=== PATIENT | female | born 1975 | race African-American/Black ===

== ENCOUNTER 2016-07-09 07:19 | Emergency (ER) | payer MEDICAID ==
[~2016-07-09] VITALS: Ht 162.6 cm; Wt 55.0 kg
[~2016-07-09 07:19] MED LIST: BUPR75TA3; BUPROPION; QUET50TA11; SERAQUEL; SEROQUEL
[2016-07-09] MEDS ORDERED: ACETAMINOPHEN 500MG TABLET PO ONE (10:30)
[2016-07-09 14:56] LABS: CLARITY URINE CLOUDY (CLEAR); COLOR URINE YELLOW (YELLOW); GLUCOSE URINE NEGATIVE (NEGATIVE); KETONES URINE NEGATIVE (NEGATIVE); LEUKOCYTE ESTERASE URINE NEGATIVE (NEGATIVE); NITRITE URINE NEGATIVE (NEGATIVE); OCCULT BLOOD URINE NEGATIVE (NEGATIVE); PROTEIN URINE NEGATIVE (NEGATIVE); SPECIFIC GRAVITY URINE 1.022 (1.005-1.030)
[2016-07-09 15:19] LABS: *AMPHETAMINES SCREEN URINE NEGATIVE (NEGATIVE); *BARBITURATES SCREEN URINE NEGATIVE (NEGATIVE); *BENZODIAZEPINES SCREEN URINE NEGATIVE (NEGATIVE); *COCAINE SCREEN URINE NEGATIVE (NEGATIVE); CANNABINOID URINE SCREEN NEGATIVE (NEGATIVE); ECSTASY MDMA SCREEN URINE NEGATIVE (NEGATIVE); METHADONE URINE SCREEN NEGATIVE (NEGATIVE); OPIATES URINE SCREEN NEGATIVE (NEGATIVE); PHENCYCLIDINE URINE SCREEN PRESUMTIVE POSITIVE (NEGATIVE)
[2016-07-09 15:20] LABS: MUCUS URINE 2+ /lpf (< = 2+); SQUAMOUS EPITHELIAL CELL URINE 3+ /lpf (RARE/1+)
[2016-07-09 15:22] LABS: BACTERIA URINE 3+; RBC URINE 0-2 /hpf (0-2); WBC URINE 0-2 /hpf (0-2)
[2016-07-09 19:16] VITALS: BP 131/82
== END 2016-07-09 20:00 | disposition home or self-care (01) ==
LOC: ER 09:29
DX: R51 Headache (principal); R41.82 Altered mental status, unspecified; Z91.018 Allergy to other foods; R03.0 Elevated blood-pressure reading, without diagnosis of hypertension
CPT/HCPCS: 70450; 80305; 81001; 81025; 99285; Z7610

== ENCOUNTER 2016-07-09 21:09 | Emergency (ER) | payer MEDICAID ==
[~2016-07-09] VITALS: Ht 162.6 cm; Wt 54.0 kg
[2016-07-10 03:29] LABS: BASOPHILS % 0.3 % (0.0-2.0); DIFFERENTIAL COMMENT 0; EOSINOPHILS % 0.8 % (0.0-5.0); HEMATOCRIT. 33.7 % (36.0-48.0); HEMOGLOBIN. 10.5 g/dL (12.0-16.0); LYMPHOCYTES % 35.5 % (20.0-50.0); MEAN CORPUSCULAR HEMOGLOBIN 23.6 pg (28.0-32.0); MEAN CORPUSCULAR HGB CONC 31.1 g/dL (31.0-37.0); MEAN CORPUSCULAR VOLUME 75.7 fL (81.0-99.0); MEAN PLATELET VOLUME 7.7 fl (7.4-10.4); MONOCYTES % 6.9 % (2.0-8.0); NEUTROPHILS % 56.5 % (40.0-76.0); PLATELET 244 x1000/uL (130-400); RED BLOOD CELL COUNT 4.45 mill/uL (4.2-5.4); RED CELL DISTRIBUTION WIDTH 17.8 % (11.6-14.6); WHITE BLOOD COUNT 4.4 x1000/uL (4.5-11.0)
[2016-07-10 03:44] LABS: ALANINE AMINOTRANSFERASE 12 IU/L (13-61); ALBUMIN 3.4 g/dL (3.4-5.0); ANION GAP 11; CALCIUM 8.6 mg/dL (8.5-10.1); CARBON DIOXIDE 26 mEq/L (21-32); CHLORIDE 108 mEq/L (98-107); ETHANOL BLOOD < 10 mg/dL; INDEX HEMOLYSI 2 (1-3); INDEX ICTERIC 1 (1-4); INDEX LIPEMIC 1 (1-3); UREA NITROGEN BLOOD 9 mg/dL (7-21); eGFR > 60 mL/min (>60)
[2016-07-10] MEDS ORDERED: SODIUM CHLORIDE 0.9% 1,000 ML IV ONE (07:06)
[2016-07-10] MEDS ORDERED: KCL 20MEQ/100ML PREMIX 100 ML IV NR (07:15)
[2016-07-10] MEDS ORDERED: POTASSIUM CHLORIDE 40MEQ/30ML UDC PO ONE (07:30)
[2016-07-10] MEDS ORDERED: ACETAMINOPHEN 500MG TABLET PO ONE (07:30)
[2016-07-10 07:55] LABS: HCG SCREEN NEGATIVE
[2016-07-10] MEDS ORDERED: POTASSIUM CHLORIDE 20MEQ TABLET SR PO SCH (08:03)
[2016-07-10 08:06] LABS: CLARITY URINE CLEAR (CLEAR); COLOR URINE YELLOW (YELLOW); GLUCOSE URINE NEGATIVE (NEGATIVE); KETONES URINE 1+ (NEGATIVE); LEUKOCYTE ESTERASE URINE NEGATIVE (NEGATIVE); NITRITE URINE NEGATIVE (NEGATIVE); OCCULT BLOOD URINE NEGATIVE (NEGATIVE); PH URINE 6.5 (4.5-8.0); PROTEIN URINE NEGATIVE (NEGATIVE); SPECIFIC GRAVITY URINE 1.017 (1.005-1.030)
[2016-07-10 08:17] LABS: *AMPHETAMINES SCREEN URINE NEGATIVE (NEGATIVE); *BARBITURATES SCREEN URINE NEGATIVE (NEGATIVE); *BENZODIAZEPINES SCREEN URINE NEGATIVE (NEGATIVE); *COCAINE SCREEN URINE NEGATIVE (NEGATIVE); CANNABINOID URINE SCREEN NEGATIVE (NEGATIVE); ECSTASY MDMA SCREEN URINE NEGATIVE (NEGATIVE); METHADONE URINE SCREEN NEGATIVE (NEGATIVE); OPIATES URINE SCREEN NEGATIVE (NEGATIVE)
[2016-07-10 08:23] LABS: PHENCYCLIDINE URINE SCREEN PRESUMTIVE POSITIVE (NEGATIVE)
[2016-07-10 11:30] VITALS: BP 103/75
== END 2016-07-10 16:26 | disposition left against medical advice (07) ==
LOC: ER 21:34
DX: E87.6 Hypokalemia (principal); R45.851 Suicidal ideations; R51 Headache; Z88.8 Allergy status to other drugs, medicaments and biological substances
CPT/HCPCS: 36415; 80053; 80305; 81003; 84703; 85025; 99284; G0482; J3480

== ENCOUNTER 2016-08-01 04:58 | Emergency (ER) | payer MEDICAID ==
[~2016-08-01] VITALS: Ht 167.6 cm; Wt 55.0 kg
[2016-08-01 07:29] LABS: BASOPHILS % 0.6 % (0.0-2.0); DIFFERENTIAL COMMENT 0; EOSINOPHILS % 1.5 % (0.0-5.0); HEMATOCRIT. 31.9 % (36.0-48.0); LYMPHOCYTES % 40.2 % (20.0-50.0); MEAN CORPUSCULAR HEMOGLOBIN 23.6 pg (28.0-32.0); MEAN CORPUSCULAR HGB CONC 31.3 g/dL (31.0-37.0); MEAN CORPUSCULAR VOLUME 75.4 fL (81.0-99.0); MEAN PLATELET VOLUME 7.8 fl (7.4-10.4); MONOCYTES % 6.3 % (2.0-8.0); NEUTROPHILS % 51.4 % (40.0-76.0); PLATELET 273 x1000/uL (130-400); RED BLOOD CELL COUNT 4.23 mill/uL (4.2-5.4); RED CELL DISTRIBUTION WIDTH 17.7 % (11.6-14.6); WHITE BLOOD COUNT 3.6 x1000/uL (4.5-11.0)
[2016-08-01 07:41] LABS: ACETAMINOPHEN < 2 ug/mL (10-30); ALANINE AMINOTRANSFERASE 20 IU/L (13-61); ALBUMIN 3.3 g/dL (3.4-5.0); ANION GAP 13; CALCIUM 8.4 mg/dL (8.5-10.1); CARBON DIOXIDE 26 mEq/L (21-32); CHLORIDE 109 mEq/L (98-107); ETHANOL BLOOD < 10 mg/dL; INDEX HEMOLYSI 1 (1-3); INDEX ICTERIC 1 (1-4); INDEX LIPEMIC 1 (1-3); UREA NITROGEN BLOOD 12 mg/dL (7-21); eGFR > 60 mL/min (>60)
[2016-08-01 07:42] LABS: CLARITY URINE CLOUDY (CLEAR); COLOR URINE YELLOW (YELLOW); GLUCOSE URINE NEGATIVE (NEGATIVE); KETONES URINE TRACE (NEGATIVE); LEUKOCYTE ESTERASE URINE 1+ (NEGATIVE); NITRITE URINE NEGATIVE (NEGATIVE); OCCULT BLOOD URINE NEGATIVE (NEGATIVE); PH URINE 5.5 (4.5-8.0); PROTEIN URINE NEGATIVE (NEGATIVE); SPECIFIC GRAVITY URINE 1.029 (1.005-1.030)
[2016-08-01] MEDS ORDERED: IBUPROFEN 400MG TABLET PO ONE (08:00)
[2016-08-01] MEDS ORDERED: POTASSIUM CHLORIDE 20MEQ TABLET SR PO ONE (08:00)
[2016-08-01 08:01] LABS: *AMPHETAMINES SCREEN URINE NEGATIVE (NEGATIVE); *BARBITURATES SCREEN URINE NEGATIVE (NEGATIVE); *BENZODIAZEPINES SCREEN URINE NEGATIVE (NEGATIVE); *COCAINE SCREEN URINE NEGATIVE (NEGATIVE); CANNABINOID URINE SCREEN NEGATIVE (NEGATIVE); ECSTASY MDMA SCREEN URINE NEGATIVE (NEGATIVE); METHADONE URINE SCREEN NEGATIVE (NEGATIVE); OPIATES URINE SCREEN NEGATIVE (NEGATIVE); PHENCYCLIDINE URINE SCREEN PRESUMTIVE POSITIVE (NEGATIVE)
[2016-08-01 08:34] LABS: MUCUS URINE 3+ /lpf (< = 2+)
[2016-08-01 08:35] LABS: BACTERIA URINE 3+; SQUAMOUS EPITHELIAL CELL URINE 3+ /lpf (RARE/1+)
[2016-08-01 08:36] LABS: WBC URINE 15-25 /hpf (0-2)
[2016-08-01] MEDS ORDERED: NITROFURANTOIN 100MG M/M CAPSULE PO ONE (09:00)
[2016-08-01] MEDS ORDERED: IBUPROFEN 600MG TABLET PO ONE (09:45)
[2016-08-01 10:32] VITALS: BP 121/70
== END 2016-08-01 10:49 | disposition home or self-care (01) ==
LOC: EDBD 04:58 → EDUNIT# 04:58 → ER 05:35
DX: F19.10 Other psychoactive substance abuse, uncomplicated (principal); N39.0 Urinary tract infection, site not specified; F20.9 Schizophrenia, unspecified; E87.6 Hypokalemia; R44.0 Auditory hallucinations; R41.82 Altered mental status, unspecified; Z91.14 Patient's other noncompliance with medication regimen; Z91.013 Allergy to seafood; Z91.018 Allergy to other foods
CPT/HCPCS: 36415; 70450; 80053; 80305; 80307; 80329; 81001; 81025; 85025; 99285; G0482

== ENCOUNTER 2016-08-11 15:14 | Emergency (ER) | payer MEDICAID ==
[~2016-08-11] VITALS: Ht 162.6 cm; Wt 60.0 kg
[2016-08-11] MEDS ORDERED: SODIUM CHLORIDE 0.9% 1,000 ML IV ONE (15:31)
[2016-08-11] MEDS ORDERED: OLANZAPINE 10 MG/VIAL IM ONE (16:15)
[2016-08-11 16:20] LABS: BASOPHILS % 0.4 % (0.0-2.0); DIFFERENTIAL COMMENT 0; EOSINOPHILS % 0.7 % (0.0-5.0); HEMATOCRIT. 29.6 % (36.0-48.0); HEMOGLOBIN. 9.3 g/dL (12.0-16.0); LYMPHOCYTES % 37.3 % (20.0-50.0); MEAN CORPUSCULAR HEMOGLOBIN 23.7 pg (28.0-32.0); MEAN CORPUSCULAR HGB CONC 31.3 g/dL (31.0-37.0); MEAN CORPUSCULAR VOLUME 75.8 fL (81.0-99.0); MEAN PLATELET VOLUME 8.6 fl (7.4-10.4); MONOCYTES % 6.4 % (2.0-8.0); NEUTROPHILS % 55.2 % (40.0-76.0); PLATELET 177 x1000/uL (130-400); RED CELL DISTRIBUTION WIDTH 17.4 % (11.6-14.6); WHITE BLOOD COUNT 3.7 x1000/uL (4.5-11.0)
[2016-08-11 16:32] LABS: ACETAMINOPHEN < 2 ug/mL (10-30); ALANINE AMINOTRANSFERASE 16 IU/L (13-61); ALBUMIN 3.4 g/dL (3.4-5.0); ANION GAP 10; CALCIUM 8.7 mg/dL (8.5-10.1); CARBON DIOXIDE 26 mEq/L (21-32); CHLORIDE 108 mEq/L (98-107); ETHANOL BLOOD < 10 mg/dL; INDEX HEMOLYSI 1 (1-3); INDEX ICTERIC 1 (1-4); INDEX LIPEMIC 1 (1-3); UREA NITROGEN BLOOD 12 mg/dL (7-21); eGFR > 60 mL/min (>60)
[2016-08-11 16:33] LABS: HCG SCREEN NEGATIVE
[2016-08-12 14:45] VITALS: BP 126/76
== END 2016-08-12 15:12 | disposition home or self-care (01) ==
LOC: ER 15:27
DX: T40.991A Poisoning by other psychodysleptics [hallucinogens], accidental (unintentional), initial encounter (principal); F16.10 Hallucinogen abuse, uncomplicated; F29 Unspecified psychosis not due to a substance or known physiological condition; G93.40 Encephalopathy, unspecified; F10.129 Alcohol abuse with intoxication, unspecified; F20.9 Schizophrenia, unspecified; F31.9 Bipolar disorder, unspecified; Y92.89 Other specified places as the place of occurrence of the external cause
CPT/HCPCS: 36415; 71010; 80053; 80307; 80329; 84703; 85025; 93005; 99285; G0482; J7030

== ENCOUNTER 2016-08-19 02:26 | Emergency (ER) | payer MEDICAID ==
[~2016-08-19] VITALS: Ht 162.6 cm; Wt 59.0 kg
[2016-08-19 05:40] VITALS: BP 112/68
== END 2016-08-19 05:53 | disposition left against medical advice (07) ==
LOC: ER 02:28
DX: R41.82 Altered mental status, unspecified (principal); Z53.21 Procedure and treatment not carried out due to patient leaving prior to being seen by health care provider

== ENCOUNTER 2018-05-09 03:41 | Emergency (ER) | payer MEDICAID ==
[~2018-05-09] VITALS: Ht 167.6 cm; Wt 50.0 kg
[~2018-05-09 03:41] MED LIST changes: +QUET50TA; -QUET50TA11
[2018-05-09] MEDS ORDERED: KETOROLAC 30MG/ML VIAL IV STA (06:17)
[2018-05-09] MEDS ORDERED: SODIUM CHLORIDE 0.9% 1,000 ML IV ONE (06:17)
[2018-05-09 06:53] LABS: BASOPHILS % 0.7 % (0.0-2.0); HEMATOCRIT. 26.2 % (36.0-48.0); HEMOGLOBIN. 7.7 g/dL (12.0-16.0); LYMPHOCYTES % 55.1 % (20.0-50.0); MEAN CORPUSCULAR HEMOGLOBIN 20.9 pg (28.0-32.0); MEAN CORPUSCULAR VOLUME 71.2 fL (81.0-99.0); MEAN PLATELET VOLUME 8.3 fl (7.4-10.4); NEUTROPHILS % 36.2 % (40.0-76.0); PLATELET 241 x1000/uL (130-400); RED BLOOD CELL COUNT 3.68 mill/uL (4.2-5.4); RED CELL DISTRIBUTION WIDTH 19.3 % (11.6-14.6)
[2018-05-09 07:00] LABS: CHLORIDE 114 mEq/L (98-107)
[2018-05-09 07:04] LABS: ETHANOL BLOOD < 10 mg/dL
[2018-05-09 07:04] LABS: CLARITY URINE CLEAR (CLEAR); COLOR URINE YELLOW (YELLOW); KETONES URINE TRACE (NEGATIVE); LEUKOCYTE ESTERASE URINE NEGATIVE (NEGATIVE); NITRITE URINE NEGATIVE (NEGATIVE); OCCULT BLOOD URINE NEGATIVE (NEGATIVE); PROTEIN URINE NEGATIVE (NEGATIVE); SPECIFIC GRAVITY URINE 1.026 (1.005-1.030); UROBILINOGEN URINE 0.2 E.U./dL (0.2-1.0)
[2018-05-09 07:07] LABS: HCG SCREEN NEGATIVE
[2018-05-09 07:13] LABS: *AMPHETAMINES SCREEN URINE NEGATIVE (NEGATIVE); *BARBITURATES SCREEN URINE NEGATIVE (NEGATIVE); *BENZODIAZEPINES SCREEN URINE NEGATIVE (NEGATIVE); *COCAINE SCREEN URINE NEGATIVE (NEGATIVE); CANNABINOID URINE SCREEN NEGATIVE (NEGATIVE)
[2018-05-09 07:14] LABS: METHADONE URINE SCREEN NEGATIVE (NEGATIVE); OPIATES URINE SCREEN NEGATIVE (NEGATIVE)
[2018-05-09 07:27] LABS: PHENCYCLIDINE URINE SCREEN PRESUMTIVE POSITIVE (NEGATIVE)
[2018-05-09] MEDS ORDERED: POTASSIUM CHLORIDE 20MEQ TABLET SR PO ONE (08:00)
[2018-05-09] MEDS ORDERED: FERROUS SULFATE 325MG TABLET PO SCH (09:00)
[2018-05-09] MEDS ORDERED: OLANZAPINE 5MG TABLET ODT PO ONE (10:00)
[2018-05-09] MEDS ORDERED: OLANZAPINE 10 MG/VIAL IM ONE (11:00)
[2018-05-10] MEDS ORDERED: ACETAMINOPHEN 325MG TABLET PO ONE (09:30)
[2018-05-10 10:08] VITALS: BP 115/71
== END 2018-05-10 10:12 | disposition home or self-care (01) ==
LOC: ER 04:12
DX: F23 Brief psychotic disorder (principal); R51 Headache; F16.229 Hallucinogen dependence with intoxication, unspecified; D72.819 Decreased white blood cell count, unspecified; E87.6 Hypokalemia; G40.909 Epilepsy, unspecified, not intractable, without status epilepticus; R45.851 Suicidal ideations; F12.10 Cannabis abuse, uncomplicated; Z88.8 Allergy status to other drugs, medicaments and biological substances; Z91.018 Allergy to other foods
CPT/HCPCS: 36415; 70450; 80053; 80305; 80307; 80329; 81003; 81025; 84703; 85025; 87186; 96372; 96374; 99285; J1885; J3490; J7030

== ENCOUNTER 2019-07-16 04:20 | Emergency (ER) | payer MEDICAID ==
[~2019-07-16] VITALS: Ht 162.6 cm; Wt 66.0 kg
[2019-07-16 05:45] LABS: BASOPHILS % 0.5 % (0.0-2.0); EOSINOPHILS % 0.9 % (0.0-5.0); HEMATOCRIT. 32.1 % (36.0-48.0); HEMOGLOBIN. 10.1 g/dL (12.0-16.0); LYMPHOCYTES % 52.4 % (20.0-50.0); MEAN CORPUSCULAR HEMOGLOBIN 24.3 pg (28.0-32.0); MEAN CORPUSCULAR VOLUME 77.4 fL (81.0-99.0); MEAN PLATELET VOLUME 8.1 fl (7.4-10.4); MONOCYTES % 7.8 % (2.0-8.0); NEUTROPHILS % 38.4 % (40.0-76.0); PLATELET 259 x1000/uL (130-400); RED BLOOD CELL COUNT 4.14 mill/uL (4.2-5.4); RED CELL DISTRIBUTION WIDTH 17.4 % (11.6-14.6)
[2019-07-16 05:54] LABS: CHLORIDE 113 mEq/L (98-107)
[2019-07-16 05:59] LABS: ETHANOL BLOOD < 10 mg/dL
[2019-07-16 06:22] LABS: HCG SCREEN NEGATIVE
[2019-07-16 06:23] LABS: CLARITY URINE CLEAR (CLEAR); COLOR URINE YELLOW (YELLOW); KETONES URINE NEGATIVE (NEGATIVE); LEUKOCYTE ESTERASE URINE 2+ (NEGATIVE); NITRITE URINE NEGATIVE (NEGATIVE); OCCULT BLOOD URINE NEGATIVE (NEGATIVE); PROTEIN URINE TRACE (NEGATIVE); SPECIFIC GRAVITY URINE 1.027 (1.005-1.030)
[2019-07-16 06:36] LABS: *AMPHETAMINES SCREEN URINE NEGATIVE (NEGATIVE); *BARBITURATES SCREEN URINE NEGATIVE (NEGATIVE); *BENZODIAZEPINES SCREEN URINE NEGATIVE (NEGATIVE); *COCAINE SCREEN URINE NEGATIVE (NEGATIVE)
[2019-07-16 06:37] LABS: CANNABINOID URINE SCREEN NEGATIVE (NEGATIVE); METHADONE URINE SCREEN NEGATIVE (NEGATIVE); OPIATES URINE SCREEN NEGATIVE (NEGATIVE)
[2019-07-16 06:38] LABS: PHENCYCLIDINE URINE SCREEN PRESUMTIVE POSITIVE (NEGATIVE)
[2019-07-16 16:04] VITALS: BP 108/64
[2019-07-16] MEDS ORDERED: NITROFURANTOIN 100MG M/M CAPSULE PO SCH (21:00)
== END 2019-07-16 19:45 ==
LOC: ER 04:20
DX: F23 Brief psychotic disorder (principal); R45.851 Suicidal ideations; N39.0 Urinary tract infection, site not specified; F16.10 Hallucinogen abuse, uncomplicated; F12.10 Cannabis abuse, uncomplicated; G40.909 Epilepsy, unspecified, not intractable, without status epilepticus; Z88.6 Allergy status to analgesic agent; Z88.8 Allergy status to other drugs, medicaments and biological substances; Z91.013 Allergy to seafood; Z91.018 Allergy to other foods
CPT/HCPCS: 36415; 80053; 80305; 80307; 80320; 80329; 81003; 84703; 85025; 99285; G0480

== ENCOUNTER 2019-09-19 20:39 | Emergency (ER) | payer SELFPAY ==
[~2019-09-19] VITALS: Ht 160 cm; Wt 62.0 kg
[2019-09-19 22:24] LABS: BASOPHILS % 0.2 % (0.0-2.0); EOSINOPHILS % 0.7 % (0.0-5.0); HEMATOCRIT. 33.6 % (36.0-48.0); HEMOGLOBIN. 10.7 g/dL (12.0-16.0); LYMPHOCYTES % 51.6 % (20.0-50.0); MEAN CORPUSCULAR HEMOGLOBIN 25.1 pg (28.0-32.0); MEAN CORPUSCULAR VOLUME 78.8 fL (81.0-99.0); MEAN PLATELET VOLUME 8.7 fl (7.4-10.4); MONOCYTES % 5.6 % (2.0-8.0); NEUTROPHILS % 41.9 % (40.0-76.0); PLATELET 297 x1000/uL (130-400); RED BLOOD CELL COUNT 4.26 mill/uL (4.2-5.4)
[2019-09-19 22:29] LABS: CHLORIDE 108 mEq/L (98-107)
[2019-09-19 22:34] LABS: ETHANOL BLOOD < 10 mg/dL
[2019-09-19] MEDS ORDERED: POTASSIUM CHLORIDE 20MEQ TABLET SR PO ONE (23:00)
[2019-09-20 00:20] LABS: CLARITY URINE TURBID (CLEAR); COLOR URINE YELLOW (YELLOW); KETONES URINE TRACE (NEGATIVE); LEUKOCYTE ESTERASE URINE 3+ (NEGATIVE); NITRITE URINE NEGATIVE (NEGATIVE); OCCULT BLOOD URINE 1+ (NEGATIVE); PROTEIN URINE 1+ (NEGATIVE); SPECIFIC GRAVITY URINE 1.024 (1.005-1.030); UROBILINOGEN URINE 0.2 E.U./dL (0.2-1.0)
[2019-09-20 00:42] LABS: *AMPHETAMINES SCREEN URINE NEGATIVE (NEGATIVE); *BARBITURATES SCREEN URINE NEGATIVE (NEGATIVE); *BENZODIAZEPINES SCREEN URINE NEGATIVE (NEGATIVE); *COCAINE SCREEN URINE NEGATIVE (NEGATIVE); METHADONE URINE SCREEN NEGATIVE (NEGATIVE); OPIATES URINE SCREEN NEGATIVE (NEGATIVE)
[2019-09-20 00:43] LABS: CANNABINOID URINE SCREEN NEGATIVE (NEGATIVE)
[2019-09-20 00:47] LABS: PHENCYCLIDINE URINE SCREEN PRESUMTIVE POSITIVE (NEGATIVE)
[2019-09-21] MEDS ORDERED: NITROFURANTOIN 100MG M/M CAPSULE PO ONE (07:45)
[2019-09-21] MEDS ORDERED: NITROFURANTOIN 100MG M/M CAPSULE PO SCH (08:00)
[2019-09-21 12:00] VITALS: BP 137/81
== END 2019-09-21 14:38 | disposition home or self-care (01) ==
LOC: ER 20:39
DX: F23 Brief psychotic disorder (principal); F16.10 Hallucinogen abuse, uncomplicated; E87.6 Hypokalemia; F91.8 Other conduct disorders; R45.851 Suicidal ideations; F10.10 Alcohol abuse, uncomplicated; G40.909 Epilepsy, unspecified, not intractable, without status epilepticus; F12.10 Cannabis abuse, uncomplicated; Y90.0 Blood alcohol level of less than 20 mg/100 ml; Z88.8 Allergy status to other drugs, medicaments and biological substances
CPT/HCPCS: 36415; 80053; 80305; 80307; 80320; 80329; 81003; 81025; 85025; 87077; 87186; 99285; G0480

== ENCOUNTER 2020-06-08 02:01 | Emergency (ER) | payer MEDICAID, OTHER ==
[~2020-06-08] VITALS: Ht 160 cm; Wt 59.0 kg
[2020-06-08 02:50] LABS: BASOPHILS % 0.9 % (0.0-2.0); EOSINOPHILS % 1.1 % (0.0-5.0); HEMATOCRIT. 36.8 % (36.0-48.0); HEMOGLOBIN. 12.2 g/dL (12.0-16.0); LYMPHOCYTES % 42.5 % (20.0-50.0); MEAN CORPUSCULAR HEMOGLOBIN 28.4 pg (28.0-32.0); MEAN CORPUSCULAR VOLUME 85.4 fL (81.0-99.0); MEAN PLATELET VOLUME 8.9 fl (7.4-10.4); MONOCYTES % 7.5 % (2.0-8.0); PLATELET 216 x1000/uL (130-400); RED BLOOD CELL COUNT 4.31 mill/uL (4.2-5.4); RED CELL DISTRIBUTION WIDTH 13.9 % (11.6-14.6)
[2020-06-08 02:51] LABS: CHLORIDE 110 mEq/L (98-107)
[2020-06-08 02:58] LABS: ETHANOL BLOOD < 10 mg/dL
[2020-06-08 03:00] LABS: HCG SCREEN NEGATIVE
[2020-06-08 03:17] LABS: CLARITY URINE CLEAR (CLEAR); COLOR URINE YELLOW (YELLOW); KETONES URINE TRACE (NEGATIVE); LEUKOCYTE ESTERASE URINE NEGATIVE (NEGATIVE); NITRITE URINE NEGATIVE (NEGATIVE); OCCULT BLOOD URINE NEGATIVE (NEGATIVE); PH URINE 5.5 (4.5-8.0); PROTEIN URINE NEGATIVE (NEGATIVE); SPECIFIC GRAVITY URINE 1.028 (1.005-1.030); UROBILINOGEN URINE 0.2 E.U./dL (0.2-1.0)
[2020-06-08 03:26] LABS: *AMPHETAMINES SCREEN URINE NEGATIVE (NEGATIVE); CANNABINOID URINE SCREEN NEGATIVE (NEGATIVE); METHADONE URINE SCREEN NEGATIVE (NEGATIVE); OPIATES URINE SCREEN NEGATIVE (NEGATIVE)
[2020-06-08 03:27] LABS: *BARBITURATES SCREEN URINE NEGATIVE (NEGATIVE); *BENZODIAZEPINES SCREEN URINE NEGATIVE (NEGATIVE); *COCAINE SCREEN URINE NEGATIVE (NEGATIVE)
[2020-06-08 03:29] LABS: PHENCYCLIDINE URINE SCREEN PRESUMTIVE POSITIVE (NEGATIVE)
[2020-06-08 05:02] LABS: CHLORIDE 110 mEq/L (98-107)
[2020-06-08 10:47] VITALS: BP 99/56
== END 2020-06-08 11:01 | disposition home or self-care (01) ==
LOC: ER 02:01
DX: G40.909 Epilepsy, unspecified, not intractable, without status epilepticus (principal); F16.10 Hallucinogen abuse, uncomplicated; R45.851 Suicidal ideations; F99 Mental disorder, not otherwise specified
CPT/HCPCS: 36415; 80048; 80053; 80305; 80307; 80320; 80329; 81003; 84703; 85025; 93005; 99285; G0480

== ENCOUNTER 2021-11-08 14:56 | Emergency (ER) | payer MEDICAID ==
[~2021-11-08] VITALS: Ht 162.6 cm; Wt 75.0 kg
[2021-11-08] MEDS ORDERED: IBUPROFEN 600MG TABLET PO ONE (15:45)
[2021-11-08 16:08] VITALS: BP 127/84
== END 2021-11-08 17:20 | disposition home or self-care (01) ==
LOC: ER 14:56
DX: M54.50 Low back pain, unspecified (principal); M54.30 Sciatica, unspecified side; G40.909 Epilepsy, unspecified, not intractable, without status epilepticus; F32.A Depression, unspecified; F17.210 Nicotine dependence, cigarettes, uncomplicated; Z71.6 Tobacco abuse counseling; Z88.5 Allergy status to narcotic agent
CPT/HCPCS: 82962; 99282; 99406

== ENCOUNTER 2022-06-18 12:43 | Emergency (ER) | payer MEDICAID ==
[~2022-06-18] VITALS: Ht 167.6 cm; Wt 70.0 kg
[2022-06-18 14:58] LABS: BASOPHILS % 0.7 % (0.0-2.0); EOSINOPHILS % 1.3 % (0.0-5.0); HEMATOCRIT. 37.8 % (36.0-48.0); HEMOGLOBIN. 12.4 g/dL (12.0-16.0); LYMPHOCYTES % 52.7 % (20.0-50.0); MEAN CORPUSCULAR HEMOGLOBIN 27.8 pg (28.0-32.0); MEAN CORPUSCULAR VOLUME 84.8 fL (81.0-99.0); MEAN PLATELET VOLUME 8.3 fl (7.4-10.4); MONOCYTES % 8.8 % (2.0-8.0); NEUTROPHILS % 36.5 % (40.0-76.0); PLATELET 261 x1000/uL (130-400); RED BLOOD CELL COUNT 4.45 mill/uL (4.2-5.4); RED CELL DISTRIBUTION WIDTH 14.1 % (11.6-14.6)
[2022-06-18 15:04] LABS: HCG SCREEN NEGATIVE
[2022-06-18 15:17] LABS: ETHANOL BLOOD < 10 mg/dL
[2022-06-18 15:27] LABS: CHLORIDE 114 mEq/L (98-107)
[2022-06-18 17:02] LABS: CLARITY URINE CLOUDY (CLEAR); COLOR URINE YELLOW (YELLOW); KETONES URINE NEGATIVE (NEGATIVE); LEUKOCYTE ESTERASE URINE NEGATIVE (NEGATIVE); NITRITE URINE NEGATIVE (NEGATIVE); OCCULT BLOOD URINE NEGATIVE (NEGATIVE); PROTEIN URINE TRACE (NEGATIVE); SPECIFIC GRAVITY URINE 1.032 (1.005-1.030)
[2022-06-18 17:36] LABS: *AMPHETAMINES SCREEN URINE NEGATIVE (NEGATIVE); *BARBITURATES SCREEN URINE NEGATIVE (NEGATIVE); *BENZODIAZEPINES SCREEN URINE NEGATIVE (NEGATIVE); *COCAINE SCREEN URINE NEGATIVE (NEGATIVE); METHADONE URINE SCREEN NEGATIVE (NEGATIVE); OPIATES URINE SCREEN NEGATIVE (NEGATIVE)
[2022-06-18 17:43] LABS: CANNABINOID URINE SCREEN PRESUMTIVE POSITIVE (NEGATIVE); PHENCYCLIDINE URINE SCREEN PRESUMTIVE POSITIVE (NEGATIVE)
[2022-06-18] MEDS ORDERED: POTASSIUM CHLORIDE 20MEQ TABLET SR PO NR (20:00)
[2022-06-19] MEDS: OLANZAPINE 5MG TABLET ODT PO SCH ×2 (14:30→20:28)
[2022-06-19 22:00] VITALS: BP 118/70
== END 2022-06-19 22:21 ==
LOC: ER 13:20
DX: F23 Brief psychotic disorder (principal); R45.851 Suicidal ideations; F16.10 Hallucinogen abuse, uncomplicated; F32.A Depression, unspecified; F12.10 Cannabis abuse, uncomplicated; G40.909 Epilepsy, unspecified, not intractable, without status epilepticus; M54.30 Sciatica, unspecified side; Z75.1 Person awaiting admission to adequate facility elsewhere; Z20.822 Contact with and (suspected) exposure to COVID-19; Z59.00 Homelessness unspecified; Z88.5 Allergy status to narcotic agent; Z91.018 Allergy to other foods; Z91.013 Allergy to seafood
CPT/HCPCS: 36415; 80053; 80305; 80320; 81003; 84703; 85025; 87426; 99285; C9803; G0480

== ENCOUNTER 2022-10-23 23:10 | Emergency (ER) | payer MEDICAID ==
[2022-10-23 23:13] VITALS: BP 115/75; PULSE 67; RESP 16; TEMP 97.5
[2022-10-24] MEDS ORDERED: SODIUM CHLORIDE 0.9% 1,000 ML IV ONE
[2022-10-24 00:21] LABS: BASOPHILS % 0.6 % (0.0-2.0); HEMATOCRIT. 36.3 % (36.0-48.0); HEMOGLOBIN. 11.9 g/dL (12.0-16.0); LYMPHOCYTES % 37.6 % (20.0-50.0); MEAN PLATELET VOLUME 8.8 fl (7.4-10.4); MONOCYTES % 5.1 % (2.0-8.0); NEUTROPHILS % 55.7 % (40.0-76.0); PLATELET 238 x1000/uL (130-400); RED BLOOD CELL COUNT 4.27 mill/uL (4.2-5.4); RED CELL DISTRIBUTION WIDTH 14.3 % (11.6-14.6)
[2022-10-24 00:32] LABS: CHLORIDE 105 mEq/L (98-107)
[2022-10-24 00:34] LABS: HCG SCREEN NEGATIVE
[2022-10-24 00:38] LABS: ETHANOL BLOOD < 10 mg/dL (-10)
== END 2022-10-24 04:15 | disposition home or self-care (01) ==
LOC: ER 23:10
DX: F32.9 Major depressive disorder, single episode, unspecified (principal); R51.9 Headache, unspecified; I49.9 Cardiac arrhythmia, unspecified; Z88.8 Allergy status to other drugs, medicaments and biological substances; Z86.59 Personal history of other mental and behavioral disorders
CPT/HCPCS: 80048; 80320; 84703; 83605; 85025; 36415; 93005; 99285; 70450; J7030; G0480

== ENCOUNTER 2023-02-07 11:41 | Emergency (ER) | payer MEDICAID ==
[~2023-02-07] VITALS: Ht 167.6 cm; Wt 64.0 kg
[2023-02-07 11:45] VITALS: O2SAT 96
[2023-02-07 12:38] LABS: HEMATOCRIT. 37.3 % (36.0-48.0); HEMOGLOBIN. 11.9 g/dL (12.0-16.0); MEAN CORPUSCULAR HEMOGLOBIN 27.4 pg (28.0-32.0); MEAN CORPUSCULAR HGB CONC 31.8 g/dL (31.0-37.0); MEAN CORPUSCULAR VOLUME 86.1 fL (81.0-99.0); MEAN PLATELET VOLUME 8.6 fl (7.4-10.4); PLATELET 278 x1000/uL (130-400); RED BLOOD CELL COUNT 4.33 mill/uL (4.2-5.4); RED CELL DISTRIBUTION WIDTH 14.4 % (11.6-14.6); WHITE BLOOD COUNT 5.4 x1000/uL (4.5-11.0)
[2023-02-07 12:41] LABS: DIFFERENTIAL COMMENT 1
[2023-02-07] MEDS ORDERED: SODIUM CHLORIDE 0.9% 1,000 ML IV ONE (12:45)
[2023-02-07 12:51] LABS: CHLORIDE 114 mEq/L (98-107); INDEX HEMOLYSI 4 (1-3); INDEX ICTERIC 1 (1-4); INDEX LIPEMIC 1 (1-3); POTASSIUM 3.6 mEq/L (3.5-5.1); SODIUM 145 mEq/L (136-145)
[2023-02-07 13:01] LABS: ALANINE AMINOTRANSFERASE 22 IU/L (13-61); ALBUMIN 3.5 g/dL (3.4-5.0); ASPARTATE AMINOTRANSFERASE 17 IU/L (15-37); BILIRUBIN TOTAL 0.3 mg/dL (0.1-1.0); CARBON DIOXIDE 27 mEq/L (21-32); CREATININE 0.6 mg/dL (0.6-1.3); GLUCOSE 89 mg/dL (70-105); NT PRO B-TYPE NATRIURETIC PEP 52 pg/mL (5-125); PROTEIN TOTAL 7.2 g/dL (6.0-8.3); TROPONIN I HIGH SENSITIVITY 4 ng/L (<54); UREA NITROGEN BLOOD 15 mg/dL (7-21)
[2023-02-07 13:10] LABS: HCG SCREEN NEGATIVE
[2023-02-07 14:03] LABS: PLATELET ESTIMATE NORMAL
[2023-02-07 14:40] LABS: ACETAMINOPHEN <2 ug/mL ug/mL (10-30); ETHANOL BLOOD < 10 mg/dL (<10)
[2023-02-07 17:22] LABS: TROPONIN I HIGH SENSITIVITY 4 ng/L (<54)
[2023-02-07 21:09] LABS: CLARITY URINE CLEAR (CLEAR); COLOR URINE YELLOW (YELLOW); GLUCOSE URINE NEGATIVE (NEGATIVE); KETONES URINE NEGATIVE (NEGATIVE); LEUKOCYTE ESTERASE URINE NEGATIVE (NEGATIVE); NITRITE URINE NEGATIVE (NEGATIVE); OCCULT BLOOD URINE NEGATIVE (NEGATIVE); PH URINE 6.5 (4.5-8.0); PROTEIN URINE NEGATIVE (NEGATIVE); SPECIFIC GRAVITY URINE 1.023 (1.005-1.030); UROBILINOGEN URINE 0.2 E.U./dL (0.2-1.0)
[2023-02-07 21:25] LABS: *AMPHETAMINES SCREEN URINE NEGATIVE (NEGATIVE); *BARBITURATES SCREEN URINE NEGATIVE (NEGATIVE); *BENZODIAZEPINES SCREEN URINE NEGATIVE (NEGATIVE); *COCAINE SCREEN URINE NEGATIVE (NEGATIVE); CANNABINOID URINE SCREEN NEGATIVE (NEGATIVE); ECSTASY MDMA SCREEN URINE NEGATIVE (NEGATIVE); METHADONE URINE SCREEN NEGATIVE (NEGATIVE); OPIATES URINE SCREEN NEGATIVE (NEGATIVE)
[2023-02-07 21:27] LABS: PHENCYCLIDINE URINE SCREEN PRESUMTIVE POSITIVE (NEGATIVE)
[2023-02-09] MEDS ORDERED: OLAN5TAB74 PO (11:23)
[2023-02-09] MEDS ORDERED: OLAN7.5T18 PO (11:23)
[2023-02-09] MEDS ORDERED: BUSP5TAB3 PO (11:23)
[2023-02-09] MEDS ORDERED: BUPR-113 PO (11:23)
[2023-02-09] MEDS ORDERED: GABA-529 PO (11:23)
[2023-02-09] MEDS ORDERED: IBUPROFEN 800MG TABLET PO ONE (13:15)
[2023-02-09] MEDS ORDERED: IBUPROFEN 400MG TABLET PO NR (13:30)
[2023-02-09] MEDS: RISPERIDONE 0.5MG TABLET PO SCH ×2 (14:16→21:00)
[2023-02-09] MEDS ORDERED: ACETAMINOPHEN 325MG TABLET PO ONE (23:15)
[2023-02-10] MEDS: RISPERIDONE 0.5MG TABLET PO SCH ×2 (10:31→22:25)
[2023-02-10] MEDS ORDERED: ACETAMINOPHEN 325MG TABLET PO ONE (21:45)
[2023-02-11] MEDS ORDERED: IBUPROFEN 600MG TABLET PO ONE (05:45)
[2023-02-11] MEDS: RISPERIDONE 0.5MG TABLET PO SCH (10:36)
[2023-02-11] MEDS ORDERED: ACETAMINOPHEN 325MG TABLET PO ONE (18:45)
[2023-02-11 19:02] VITALS: BP 139/92; PULSE 78; RESP 16; TEMP 98.2
== END 2023-02-11 19:11 | disposition short-term general hospital (02) ==
LOC: ER 11:41
DX: R55 Syncope and collapse (principal); R45.851 Suicidal ideations; F32.9 Major depressive disorder, single episode, unspecified; F20.9 Schizophrenia, unspecified; Z20.822 Contact with and (suspected) exposure to COVID-19; Z79.899 Other long term (current) drug therapy
CPT/HCPCS: 80053; 80305; 81003; 80307; 80329; 80320; 84703; 83880; 85025; 84484; 36415; 71045; 93005; 96360; 96361; 99285; 87426; J7030; C9803; G0480